=== PATIENT | female | born 1980 | race Two or more races ===

== ENCOUNTER 2022-03-05 22:48 | Emergency (ER) | payer MEDICAID, OTHER ==
[~2022-03-05] VITALS: Ht 152.4 cm; Wt 65.8 kg
[2022-03-05 23:42] VITALS: BP 109/76
[2022-03-06] MEDS: KETOROLAC TROMETH 60MG/2ML VIAL IM ONE (01:40)
== END 2022-03-06 01:46 | disposition home or self-care (01) ==
LOC: ER 22:48
DX: R51.9 Headache, unspecified (principal)
CPT/HCPCS: 96372; 99283; J1885